=== PATIENT | female | born 1950 | race Caucasian/White ===

== ENCOUNTER → 2017-02-02 | Outpatient (CLI) | payer BC, MEDICARE ==
--- NOTE | 2017-02-02 12:00 | CT ---
EXAMINATION TYPE: CT brain wo con DATE OF EXAM: 02/02/2017 COMPARISON: NONE HISTORY: Headache and severe dizziness CT DLP: 1005 mGycm Automated exposure control for dose reduction was used. FINDINGS: Mild generalized degenerative change of the greater frontal lobe component. No midline shift or mass effect. Calvarium intact. Very mild changes of chronic ethmoidal sinusitis. Subtle hypodensity within the whi te matter superiorly is nonspecific. There are cerebellar tonsils are low-lying in position. IMPRESSION: NO ACUTE INTRACRANIAL PROCESS. MILD DEGENERATIVE CHANGE OF THE GREATER FRONTAL LOBE COMPONENT NOTED. SUBTLE AREAS OF WHITE MATTER HYPOATTENUATION ARE NONSPECIFIC BUT MOST TYPICAL REMOTE MICROVASCULAR IS CHEMIA. CORRELATE WITH MRI CLINICALLY WARRANTED. CSF PROMINENCE ALONG THE QUADRIGEMINAL PLATE ADJACENT TO THE LEFT LATERAL MARGIN OF THE MIDBRAIN MAY BE RELATED TO ASYMMETRIC SF SPACE VERSUS SMALL ARACHNOID CYST MEASURING APPROXIMATELY 7 MM. THERE IS A TINY ARACHNOID CYST. CORRELATE WITH MRI.
== END | disposition home or self-care (01) ==
LOC: RADCTMAIN 11:20
PROVIDERS: ATTEND Family Medicine
DX: G31.89 Other specified degenerative diseases of nervous system (principal); G93.89 Other specified disorders of brain; R90.82 White matter disease, unspecified
CPT/HCPCS: 70450

== ENCOUNTER → 2017-02-04 | Outpatient (CLI) | payer MEDICARE ==
[2017-02-04 11:03] LABS: Non-African American GFR(MDRD) >60 (>60 ml/min/1.73 sqM)
== END | disposition home or self-care (01) ==
LOC: LABWHC1 10:43
PROVIDERS: ATTEND Physician Assistant
DX: G93.0 Cerebral cysts (principal)
CPT/HCPCS: 36415; 82565

== ENCOUNTER → 2017-02-06 | Outpatient (CLI) | payer MEDICARE ==
--- NOTE | 2017-02-06 13:03 | MR ---
EXAMINATION TYPE: MR brain wo/w con DATE OF EXAM: 02/06/2017 COMPARISON: NONE HISTORY: Abnormal CT brain. Headache and severe dizziness. TECHNIQUE: Multiplanar, multisequence images of the brain and brainstem is performed without and with IV contras t, utilizing 7 mL intravenous Gadavist . FINDINGS: Emanating from the left cerebellar pontine angle there is a fluid. Area measuring 1.6 x 0.7 mm anteri or to the superior cerebellar folia which maintains fluid signal on all sequences, does not restricte d diffusion, and does not demonstrate enhancement. This is compatible with a small arachnoid cyst. Si milarly as mentioned on the prior CT there is a well-circumscribed area of CSF signal on all sequence s which does not enhance and does not demonstrate a capsule most compatible with a prominent perivasc ular space. Diffusion weighted images demonstrate no evidence of a recent infarct or other diffusion abnormality. There is no extra-axial fluid collection. Few scattered foci of T2/FLAIR hyperintensity region are seen within the periventricular and subcortical white matter. These exhibit no enhancement and are mo st compatible with chronic microvascular injury. Pulsation artifact is seen at the level of the midbr ain and cerebellar folia on FLAIR and T2 sequences. No abnormal enhancement to suggest underlying foc al lesion. The ventricular system and cisternal spaces are normal in size and appearance. The brain volume is age appropriate. Midline structures demonstrate normal morphology. The craniocervical junction appears within normal limits. The visualized sinuses are clear and the globes are intact. IMPRESSION: 1. Benign small arachnoid cyst at the left cerebellar pontine angle and prominent perivascular space, also benign, near the left quadrigeminal plate. 2. No evidence of abnormal or suspicious enhancement. 3. No evidence of acute territorial infarct, intracranial hemorrhage or midline shift. 4. Few nonspecific white matter changes, likely on the basis of microangiopathy.
== END | disposition home or self-care (01) ==
LOC: RADMRIMAIN 11:11
PROVIDERS: ATTEND Physician Assistant
DX: G93.0 Cerebral cysts (principal)
CPT/HCPCS: 70553; A9581

== ENCOUNTER → 2018-03-03 | Outpatient (CLI) | payer MEDICARE ==
--- NOTE | 2018-03-05 01:59 | MR ---
EXAMINATION TYPE: MR shoulder RT wo con DATE OF EXAM: 03/03/2018 COMPARISON: Outside radiograph 01/19/2019 HISTORY: 67-year-old female Pain in right shoulder TECHNIQUE: Multiplanar, multisequence imaging of the right shoulder is performed without contrast. FINDINGS: The long head biceps tendon appears intact and appropriately situated along the bicipital groove. Mod erate tenosynovial fluid seen along the biceps tendon sheath. There is heterogeneous signal with mild thickening involving the subscapularis tendon. Underlying cys tic change within the lesser tuberosity. No discrete tear is identified. Mild degenerative subchondral signal changes within the mid clavicular joint. No significant encroach ment onto the underlying cuff. There is diffuse heterogeneity of the supraspinatus tendon with a 1.3 cm long by 2.4 cm AP intrasubst ance tear extending throughout the supraspinatus tendon. Additional bursal sided fraying involving th e posterior supraspinatus tendon fibers. Difficult to exclude a small bursal sided communication. There may be some bursal sided fraying of the infraspinatus tendon as well. Otherwise, the infraspina tus tendon remains intact. No atrophy of the rotator cuff musculature. Mild effusion within the subacromial/subdeltoid bursa. There is a small glenohumeral joint effusion with abnormal signal within the posterior superior labru m. No paralabral cyst. Mild degenerative spurring along the inferior humeral head with focal 6 mm moderate to severe chondra l loss along the superior humeral head, refer to coronal image 16. There is edematous thickening of the axillary recess measuring up to 5 mm but no abnormal thickening of the coracohumeral ligament. No Hill-Sachs deformity or os acromiale. No suspicious bone marrow replacement. IMPRESSION: 1. Marked diffuse rotator cuff tendinosis. There is an intrasubstance tear extending throughout the s upraspinatus tendon with bursal sided fraying. No definite high-grade partial rotator cuff tear. No e vidence for full-thickness tear. 2. Additional bursal sided fraying of the infraspinatus tendon. 3. Edematous thickening of the axillary recess suggests sprain of the inferior glenohumeral ligament. While this finding can also be seen in the setting of adhesive capsulitis, there is no concurrent th ickening of the coracohumeral ligament to further support this diagnosis. Clinically correlate. 4. SLAP tear and mild glenohumeral joint osteoarthrosis. 5. Long head biceps tenosynovitis and mild subacromial/subdeltoid bursitis versus reactive effusion.
== END ==
LOC: RADMRIMAIN 10:42
PROVIDERS: ATTEND Orthopaedic Surgery
DX: M75.101 Unspecified rotator cuff tear or rupture of right shoulder, not specified as traumatic (principal); S43.491A Other sprain of right shoulder joint, initial encounter; M75.21 Bicipital tendinitis, right shoulder; M75.51 Bursitis of right shoulder

== ENCOUNTER 2018-04-21 06:20 | Day surgery (SDC) | payer MEDICARE ==
[2018-04-16 10:42] VITALS: BMI 24.7
--- NOTE | 2018-04-20 13:30 | HP ---
HISTORY AND PHYSICAL Surgery scheduled for 04/21/2018. Emmanuelle Pride is a 67-year-old patient seen with progressive right shoulder pain. We discussed treatment options. She elected to proceed with arthroscopy. Consent regarding procedure was obtained. PAST MEDICAL HISTORY: Hypothyroidism. PAST SURGICAL HISTORY: Lumbar foraminotomy. DAILY MEDICATIONS: 1. Levothyroxine. 2. Tylenol. ALLERGIES: None reported. SOCIAL HISTORY: The patient denies current tobacco use. PHYSICAL EXAMINATION: Physical evaluation of right shoulder: Flexion 140 degrees, abduction 120 degrees, external rotation 60 degrees with good strength. There is tenderness along the anterior lateral acromion rotator cuff insertion site. Impingement sign positive at 90 degrees. Distal neurovascular exam is intact. Right shoulder radiographs revealed a type 2 anterior acromion, cystic changes of the greater tuberosity. A right shoulder MRI revealed partial rotator cuff tear, labral tear and biceps tendinitis. IMPRESSION: Right shoulder impingement with partial rotator cuff tear, labral tear and biceps tendinitis. PLAN: Right shoulder arthroscopy with subacromial decompression, possible arthroscopic rotator cuff repair, possible biceps tenotomy and debridement. MMODL / IJN: [id number] /
[~2018-04-21 06:20] MED LIST: DEXAMETHASONE SOD PHOSPHATE 10 MG/ML 1 ML VIAL IV ONE; HYDROmorphone 0.5 MG/0.5 ML SYRINGE IVP PRN; LACTATED RINGERS 1,000 ML IV SCH; LIDOCAINE 1% 20 ML VIAL (10MG/ML) FOR IV START INTRADERMA PRN; ONDANSETRON 4 MG/2 ML VIAL IVP ONE; Pre Op ABX Message 1 EACH MISC MISCELLANE ONE; SCOPOLAMINE 1.5MG/72HR PATCH TRANSDERM ONE; ceFAZolin 1,000 MG in DEXTROSE/WATER 1 50ML.BAG IV ONE
[2018-04-21 06:46] VITALS: RESP 16
[2018-04-21] MEDS ORDERED: fentaNYL (PF) 50 MCG/ML 2 ML AMP IV ONE (07:06)
[2018-04-21] MEDS ORDERED: MIDAZOLAM 2 MG/2 ML VIAL IV ONE (07:06)
--- NOTE | 2018-04-21 07:24 | P.ONQ ---
Anesthesiology Proc Note - PNB - Peripheral Nerve Block Performed Right Interscalene Single Time Out Performed: Yes Procedure Start Time: 07:05 Indication: Acute Post-Operative Pain, Analgesia Specifically requested for management of pain by DrChristopher: David Bee Sedation Type: Sedate with meaningful contact maintained Preparation: Sterile Prep Position: Supine Catheter: None Needle Types: Other (see comment) (Pajunk) Needle Size: 50mm (2") Needle Gauge: 21 Technique: Ultrasound Injectate: 0.5% Ropivacaine (see comment for volume) (25 cc) Blood Aspirated: No Pain Paresthesia on Injection Noted: No Resistance on Injection: Normal Events: Uneventful and Well Tolerated
[2018-04-21] MEDS ORDERED: ePHEDrine SULFATE/0.9% NACL/PF 50 MG/5 ML SYRINGE IV ONE (08:10)
[2018-04-21] MEDS ORDERED: fentaNYL (PF) 50 MCG/ML 2 ML AMP ONE (08:10)
[2018-04-21] MEDS ORDERED: PROPOFOL 10 MG/ML 50 ML VIAL IV ONE (08:10)
[2018-04-21] MEDS ORDERED: ONDANSETRON 4 MG/2 ML VIAL ONE (08:10)
[2018-04-21] MEDS ORDERED: LIDOCAINE 1% INJ 10MG/ML (20 ML MDV) ONE (08:10)
[2018-04-21] MEDS ORDERED: MIDAZOLAM 2 MG/2 ML VIAL ONE (08:10)
[2018-04-21] MEDS ORDERED: ROPIVACAINE 5 MG/ML 30 ML VIAL ONE (08:10)
[2018-04-21] MEDS ORDERED: ROCURONIUM BROMIDE 10 MG/ML 10 ML VIAL IV ONE (08:10)
[2018-04-21] MEDS ORDERED: LACTATED RINGERS 1,000 ML IV ONE (09:33)
--- NOTE | 2018-04-21 09:55 | P.OP ---
Date of Procedure: 04/21/18 Preoperative Diagnosis: Right shoulder impingement Postoperative Diagnosis: 1. Right shoulder rotator cuff tear 2. Right shoulder impingement 3. Right shoulder labral tear Procedure(s) Performed: 1. Right shoulder arthroscopic rotator cuff repair 2. Right shoulder arthroscopic subacromial decompression 3. Right shoulder arthroscopic debridement labral tear Implants: 14.75 Arthrex swivel lock anchor Anesthesia: GETA, regional (Interscalene block) Surgeon: David Bee Filtration Operator #1: Diego Patterson Estimated Blood Loss (ml): 10 Pathology: none sent Condition: stable Disposition: PACU Indications for Procedure: 67-year-old patient seen with progressive right shoulder pain. After having treatment options discussed, she elected to proceed with arthroscopy Operative Findings: See description of procedure Description of Procedure: Patient underwent an interscalene block by department of anesthesia. The patient was then taken to the operative suite. The patient underwent a general anesthetic by the department of anesthesia. The patient was placed into a lateral position and secured. There was appropriate padding of the bony prominence. Right shoulder was then prepped and draped in normal sterile orthopedic fashion. We placed the extremity in 10 pounds of longitudinal traction. A posterior incision was now made for a posterior working portal site. The trocar and cannula were inserted into the glenohumeral joint. Arthroscopy was initiated. Spinal needle was now inserted anteriorly, to ascertain the anterior working portal site. An incision was now made in that area, a trocar was inserted followed by a probe. There was superficial tearing of the superior labrum. The biceps tendon appeared intact and stable. The remainder of the labrum was stable. Glenohumeral joint was stable. I debrided the superficial labral tear down to stable tissue. The residual labrum was probed and found to be stable. Utilizing the posterior working portal site, the trocar and cannula were inserted into the subacromial space. Arthroscopy initiated. I made an incision 2 fingerbreadths lateral to the acromion. I introduced my trocar followed by my ArthroCare ablator. I now began ablating thick subacromial bursal tissue, which exposed the undersurface of the anterior acromion. There was diminished subacromial space. There was a very prominent anterior acromion. A motorized bur was introduced and a subacromial decompression was performed. I also excised some osteophytes off the inferior aspect of the distal clavicle. The AC joint was visualized and noted to be mildly arthritic. I did not think enough toward a Mary procedure. I turned my attention to the rotator cuff tendon. There was some partial tearing long the midportion distal supraspinatus. Upon probing this area I did note a through and through perforation. I now debrided that area getting down to stable tendon tissue. I noted a 1.5 cm defect. I abraded the footprint with a motorized bur. I passed 2 everted mattress sutures through good bites rotator cuff tendon. I punched a hole for fixation. I now had Surya DUMONT pass all suture limbs through a 4.75 Arthrex swivel lock anchor. The anchor was introduced into our pre-punched hole. While I held the anchor in position Surya DUMONT tensioned all the sutures and then introduced the anchor with good fixation noted. All residual suture limbs were clipped. We had good compression of the tendon along the entire footprint. I injected 1 mL Renue intra-articular. Instruments now removed from the portal sites. All portal sites were approximated with nylon suture. Sterile dressings were applied followed by a shoulder sling. Diego DUMONT assisted in this complex case. The patient was awakened, transferred to a bed, and taken to recovery in stable condition.
[2018-04-21 09:56] VITALS: TEMP 96.8
[2018-04-21 11:25] VITALS: BP 147/80; PULSE 85
== END 2018-04-21 12:25 | disposition home or self-care (01) ==
LOC: OR 06:20
PROVIDERS: ATTEND Orthopaedic Surgery
DX: M75.101 Unspecified rotator cuff tear or rupture of right shoulder, not specified as traumatic (principal); M75.41 Impingement syndrome of right shoulder; S43.431A Superior glenoid labrum lesion of right shoulder, initial encounter; X58.XXXA Exposure to other specified factors, initial encounter; M25.711 Osteophyte, right shoulder; E03.9 Hypothyroidism, unspecified; Z79.890 Hormone replacement therapy; Z79.899 Other long term (current) drug therapy; Z79.82 Long term (current) use of aspirin; Z91.09 Other allergy status, other than to drugs and biological substances
CPT/HCPCS: 64415; 29826; 29827; C1713; C1765; J2250; J1100; J2405; J2001; J3010; J0690; J2795; J2704

== ENCOUNTER → 2020-04-04 | Day surgery (SDC) | payer MEDICARE ==
[2020-03-30 14:38] VITALS: BMI 25.4
[~2020-04-04] MED LIST changes: -DEXAMETHASONE SOD PHOSPHATE 10 MG/ML 1 ML VIAL IV ONE; -HYDROmorphone 0.5 MG/0.5 ML SYRINGE IVP PRN; +LIDOCAINE 1% (10MG/ML) FOR IV START INTRADERMA PRN; -LIDOCAINE 1% 20 ML VIAL (10MG/ML) FOR IV START INTRADERMA PRN; +LIDOCAINE 1% INJ 10MG/ML (20 ML MDV) ONE; -ONDANSETRON 4 MG/2 ML VIAL IVP ONE; +PROPOFOL 10 MG/ML 20 ML VIAL IV ONE; -Pre Op ABX Message 1 EACH MISC MISCELLANE ONE; -SCOPOLAMINE 1.5MG/72HR PATCH TRANSDERM ONE; -ceFAZolin 1,000 MG in DEXTROSE/WATER 1 50ML.BAG IV ONE
[2020-04-04 08:46] VITALS: RESP 16; TEMP 98.4
--- NOTE | 2020-04-04 09:24 | P.PCN ---
Date of Procedure: 04/04/20 Procedure(s) Performed: BRIEF HISTORY: Patient is a 69-year-old pleasant 8 female scheduled for an elective colonoscopy as a part of screening for colorectal neoplasia. Her last colonoscopy was 10 years ago. PROCEDURE PERFORMED: Colonoscopy. PREOPERATIVE DIAGNOSIS: Screening for colon cancer. IV sedation per Anesthesia. PROCEDURE: After informed consent was obtained, the patient, was brought into the endoscopy unit. IV sedation was administered by Anesthesia under continuous monitoring. Digital rectal examination was normal. Initially the Olympus CF-160 flexible video colonoscope was then inserted in the rectum, gradually advanced into the cecum without any difficulty. Careful examination was performed as the scope was gradually being withdrawn. Ileocecal valve and the appendiceal orifice were visualized and appeared normal. Prep was excellent. Mucosa of the cecum, ascending colon, transverse colon, descending colon, sigmoid colon, and rectum appeared normal. Scattered sigmoid diverticulosis. Retroflexion was performed in the rectum and no lesions were seen. The patient tolerated the procedure well. IMPRESSION: Normal-appearing colon from rectum to cecum with no evidence of colorectal. Scattered sigmoid diverticulosis. RECOMMENDATIONS: Findings of this examination were discussed with the patient as well as her family. She was advised to have a repeat screening colonoscopy.
[2020-04-04 09:41] VITALS: BP 145/74; PULSE 52
== END ==
LOC: ORWHC2ENDO 08:08
PROVIDERS: ATTEND Internal Medicine Gastroenterology
DX: Z12.11 Encounter for screening for malignant neoplasm of colon (principal); K57.30 Diverticulosis of large intestine without perforation or abscess without bleeding; E07.9 Disorder of thyroid, unspecified; Z79.890 Hormone replacement therapy; Z79.82 Long term (current) use of aspirin; Z98.890 Other specified postprocedural states
CPT/HCPCS: G0121; J2001; J2704; 45378

== ENCOUNTER → 2020-05-24 | Outpatient (CLI) | payer MEDICARE ==
--- NOTE | 2020-05-24 15:32 | US ---
EXAMINATION TYPE: US carotid duplex BILAT DATE OF EXAM: 05/24/2020 COMPARISON: NONE CLINICAL HISTORY: R42 VERTIGO. Vertigo EXAM MEASUREMENTS: RIGHT: Peak Systolic Velocity (PSV) cm/sec ----- Right CCA: 66.6 ----- Right ICA: 200 ----- Right ECA: 147 ICA/CCA ratio: 3.0 RIGHT: End Diastole cm/sec ----- Right CCA: 19.8 ----- Right ICA: 57.6 ----- Right ECA: 18.0 LEFT: Peak Systolic Velocity (PSV) cm/sec ----- Left CCA: 74.4 ----- Left ICA: 119 ----- Left ECA: 99.6 ICA/CCA ratio: 1.6 LEFT: End Diastole cm/sec ----- Left CCA: 21.6 ----- Left ICA: 49.0 ----- Left ECA: 16.2 VERTEBRALS (direction of flow): Right Vertebral: Antegrade Left Vertebral: Antegrade Rhythm: Normal Elevated velocities right ICA, and ECA/ Otherwise no significant stenosis visualized Intimal thickening is present bilaterally. Atheromatous plaquing is at the right internal carotid art sepideh origin some hard plaque is also present in the left carotid bulb IMPRESSION: 1. Moderate stenosis left internal carotid artery between 50 and 69%. Correlate with the patient's sy mptoms. Criteria for Assigning % of Stenosis / Diameter reduction (Estimation based on the indirect measurements of the internal carotid artery velocities (ICA PSV). 1. Normal (no stenosis)=ICA PSV < 125 cm/s: ratio < 2.0: ICA EDV<40 cm/s. 2. Less than 50% stenosis=ICA PSV < 125 cm/s: ratio < 2.0: ICA EDV<40 cm/s. 3. 50 to 69% stenosis=ICA PSV of 125 to 230 cm/s: ration 2.0 ? 4.0: ICA EDV 40-100 cm/s. 4. Greater than 70% stenosis to near occlusion= ICA PSV > 230 cm/s: ratio > 4.0: ICA EDV > 100 cm/s. 5. Near occlusion= ICA PSV velocities may be low or undetectable: variable ratio and ICA EDV. 6. Total occlusion=unable to detect flow.
== END | disposition home or self-care (01) ==
LOC: RADUSWWP 14:15
PROVIDERS: ATTEND Family Medicine
DX: I65.22 Occlusion and stenosis of left carotid artery (principal)
CPT/HCPCS: 93880